=== PATIENT | male | born 1995 | race Caucasian/White ===

== ENCOUNTER → 2024-04-07 | Outpatient (CLI) | payer SELFPAY | LOC: EDSEX 15:04 → WSPT 15:04 | DX: S29.012D Strain of muscle and tendon of back wall of thorax, subsequent encounter (principal); X58.XXXD Exposure to other specified factors, subsequent encounter ==

== ENCOUNTER → 2024-04-30 | Outpatient (CLI) | payer SELFPAY | LOC: WSPT 11:18 | DX: S29.012D Strain of muscle and tendon of back wall of thorax, subsequent encounter (principal); X58.XXXD Exposure to other specified factors, subsequent encounter ==

== ENCOUNTER 2024-05-02 13:18 | Emergency (ER) | payer OTHER ==
[~2024-05-02] VITALS: Ht 185.4 cm; Wt 75.0 kg
[2024-05-02 13:21] VITALS: TEMP 98.5
[2024-05-02] MEDS ORDERED: Ketorolac 30 MG/ML VIAL IV ONE (14:30)
[2024-05-02] MEDS ORDERED: NS 1,000 ML IV ONE (14:30)
[2024-05-02 14:51] LABS: BASO % 0.6 % (0.0-2.0); EOS # 0.2 K/mm3 (0.0-0.7); EOS % 2.7 % (0.0-4.0); GRAN # 3.5 K/mm3 (1.4-6.5); GRAN % 50.7 % (42.2-75.2); HEMATOCRIT 42.9 % (42.0-52.0); HEMOGLOBIN 15.6 g/dl (13.5-18.0); LYMPH # 2.4 K/mm3 (1.2-3.4); LYMPH % 34.3 % (20.0-51.0); MEAN CELL VOLUME 87 fl (80.0-100.0); MEAN CORPUSCULAR HEMOGLOBIN 32 pg (27-31); MEAN CORPUSCULAR HGB CONC 36 g/dl (33.0-37.0); MEAN PLATELET VOLUME 9.1 fl (7.4-10.4); MONO # 0.8 K/mm3 (0.1-0.6); MONO % 11.6 % (1.7-9.3); PLATELET COUNT 233 K/mm3 (130-400); RED BLOOD COUNT 4.93 M/mm3 (4.20-5.60); REDCELL DISTRIBUTION WIDTH-CV 12.1 % (11.5-14.5)
[2024-05-02 15:17] LABS: ALBUMIN 4.4 g/dL (3.5-5.0); BILIRUBIN,TOTAL 0.8 mg/dL (0.2-1.2); CALCIUM 9.6 mg/dL (8.4-10.2); CREATININE, serum 1.05 mg/dL (0.72-1.25); POTASSIUM 4.1 mEq/L (3.5-4.5); TOTAL PROTEIN 7.7 g/dl (6.2-8.1)
[2024-05-02 15:24] LABS: TROPONIN-I 0.01 ng/mL (0.00-0.033)
[2024-05-02 16:09] VITALS: BP 127/83; PULSE 73
== END 2024-05-02 16:13 | disposition home or self-care (01) ==
LOC: COL.ER 13:18
PROVIDERS: Physician Assistant
DX: R07.89 Other chest pain (principal); Z87.09 Personal history of other diseases of the respiratory system
CPT/HCPCS: J1885; J7030